=== PATIENT | female | born 1985 | race Caucasian/White ===

== ENCOUNTER 2017-07-20 13:57 | Emergency (ER) | payer OTHER, SELFPAY ==
[2017-07-20 13:58] VITALS: BP 129/78; PULSE 103; RESP 14; O2SAT 99; BMI 36.5
--- NOTE | 2017-07-20 15:13 | HMH.EDGENADL ---
ED Disposition Clinical Impression: Left leg pain Disposition: Home, Self-Care Condition on Discharge: Good Instructions: DI for Leg Pain Additional Instructions: Please follow-up with Dr. Jey daniel. Please see an operative surgeon regarding your left thigh pain (dr. Zelaya) within the next 24 hrs. Referrals: Keo Brown [Referring] - William Zelaya MD [Staff Physician] - Time of Disposition: 17:27 - Critical Care Critical Care Time: No Attestation: On 07/20/17, the high probability of a clinically significant, sudden or life threatening deterioration of the following system(s) required my full and direct attention, intervention and personal management. The time I documented below is in addition to time spent performing reported procedures but includes the following listed in this critical care notation. Medical Decision Making - Medical Records Medical records reviewed: Yes: I reviewed the patient's medical records. Vital Signs: 07/20/17 13:58 07/20/17 17:37 Temperature 98.6 F Temperature Source Oral Pulse Rate 87 Pulse Rate [Right Brachial] 103 H Respiratory Rate 14 14 Blood Pressure 145/70 Blood Pressure [Right Arm] 129/78 Blood Pressure Mean [Right Arm] 95 Blood Pressure Source Automatic Cuff Blood Pressure Source [Right Arm] Automatic Cuff Blood Pressure Position Sitting Blood Pressure Position [Right Arm] Sitting 02 Sat by Pulse Oximetry 99 Oxygen Delivery Method Room Air Room Air - US Data US Images: Lower Extremity (left) ED US Reviewed: Yes: I have reviewed the patient's US results, I discussed the US results w/the radiologist Preliminary Findings: Normal/NAD Findings Narrative: no DVT - Ds Inquiry Pt receiving controlled substance: No - Reevaluation(s) Time: 17:15 Reevaluation #1: Patient remains in stable medical condition, advised of results obtained, instructed to follow-up with PCP and/or [facility] regarding her left thigh pain. General Adult HPI - General Chief complaint: PAIN Stated complaint: pain left leg Time Seen by Provider: 07/20/17 14:45 Mode of Arrival: Ambulatory Limitations: No Limitations Description of Symptoms (Recalled from ER Triage Doc. by RN): PT c/o pain in the upper left thigh. Pt is 3 months and is concerned with a blood clot - History of Present Illness HPI narrative: This is a 31-year-old lady presented to the emergency room with left lower thigh pain for the past 2 weeks. She has seen her SPOOL FIXER just 2 days ago but has forgotten to mention the left thigh pain to him. When she talked to him earlier this morning he recommended that she goes to an emergency room to be evaluated for a possible blood clot. Patient denies any chest pain, denies any shortness of breath. Patient has any previous similar episodes the past denies any trauma to the left leg, denies any prolonged sitting or recent travel. MD complaint: pain in the left leg Onset (ago): week(s) (4) Location: lower extremity (left) Radiation: non-radiation Severity scale (1-10): 2 Quality: burning Consistency: intermittent Relieving factors: none Associated symptoms: denies other symptoms - Related Data Home Medications Medication Instructions Recorded Confirmed No Known Home Medications [No 07/20/17 07/20/17 Known Home Medications] Allergies Allergy/AdvReac Type Severity Reaction Status Date / Time No Known Allergies Allergy Verified 07/20/17 14:49 [facility] History I have reviewed the patient's past medical history: Yes Medical History: Denies:: Cancer, Diabetes Mellitus Type 1, Diabetes Mellitus Type 2, MRSA Amputation: No Fractures: No - *Social History Educational Level: Completed Grade School Smoking Status: Current every day smoker Tobacco Type: cigarettes Alcohol Intake: never - Psychiatric History Expresses thoughts of harming self/others: None Suicide Plan Description: No Plan Para: 0 ALLISON Hughes
--- NOTE | 2017-07-20 15:22 | NVE_ITS ---
Venous Exam Indications: 729.5 Pain in limb. IMPRESSIONS 1. Normal study. 2. No evidence of deep or superficial vein thrombosis involving the left lower extremity Left lower extremity venous duplex evaluation. Doppler flow study including spectral analysis, color and hutchinson scale imaging. Location: Emergency department. Patient status: Inpatient. CRITICAL FINDINGS - Reported to: Patient's RN - Read back and verified. - 07/20/2017 - 4:00 PM Tables: Venous flow and imaging: + +-------+ + Location Overall Flow properties + +-------+ + Left common femoral Patent Normal phasicity; spontaneous; normal augmentation; compressible + +-------+ + Left saphenofemoral junction Patent Compressible + +-------+ + Left profunda femoral Patent Compressible + +-------+ + Left femoral Patent Normal phasicity; spontaneous; normal augmentation; compressible + +-------+ + Left greater saphenous Patent Normal phasicity; spontaneous; normal augmentation; compressible + +-------+ + Left popliteal Patent Normal phasicity; spontaneous; normal augmentation; compressible + +-------+ + Left posterior tibial Patent Compressible + +-------+ + Left peroneal Patent Compressible + +-------+ + Left gastrocnemius Patent Compressible + +-------+ + Left soleal Patent Compressible + +-------+ + (Report amended ) Electronically signed by: Haseeb Schaefer [id number]
[2017-07-20 17:37] VITALS: BP 145/70; PULSE 87; RESP 14; TEMP 37; O2SAT 98
== END 2017-07-20 17:38 | disposition home or self-care (01) ==
PROVIDERS: Emergency Provider Emergency Medicine
DX: M79.605 Pain in left leg (principal); F17.210 Nicotine dependence, cigarettes, uncomplicated
CPT/HCPCS: 93971; 99282

== ENCOUNTER → 2018-06-12 21:01 | Outpatient (CLI) | payer OTHER, SELFPAY | PROVIDERS: Visit Provider Nurse Practitioner Family | DX: J02.9 Acute pharyngitis, unspecified (principal) ==